=== PATIENT | female | born 1950 | race Caucasian/White ===

== ENCOUNTER → 2018-01-27 | Outpatient (CLI) | payer MEDICARE ==
--- NOTE | 2018-01-28 15:40 | RADIOLOGY REPORT (SQ) ---
EXAM DESCRIPTION: MRI LUMBAR SPINE WITHOUT COMPLETED DATE/TIME: 01/27/2018 12:32 pm REASON FOR STUDY: RADICULOPATHY, LUMBAR REGION M54.16 RADICULOPATHY, LUMBAR REGION COMPARISON: None. TECHNIQUE: Sagittal and Axial imaging includes T1, T2, STIR and gradient echo sequences. Coronal T2/ HASTE imaging. LIMITATIONS: Motion. FINDINGS: VISUALIZED UPPER ABDOMEN: Limited evaluation. No acute or suspicious findings suggested. SEGMENTATION: No transitional anatomy. The lowest well-developed disc space is labeled L5-S1. ALIGNMENT: Mild convex left scoliosis. Slight anterolisthesis L3 relative to L2. VERTEBRAE: Intact. BONE MARROW: Mild reactive edema L2-3 and L3- 4 endplates. DISC SIGNAL: Desiccation multiple levels. POSTERIOR ELEMENTS: Generally intact. No pars defect evident. HARDWARE: None in the spine. CORD AND CONUS: Normal in size and signal intensity. Conus at the appropriate level. SOFT TISSUES: No aortic aneurysm seen. No bulky retroperitoneal adenopathy or mass. No paraspinal mas s or fluid. L1-L2: Mild spinal stenosis due to disc osteophyte complex. Mild neural foraminal narrowing bilatera lly. L2-L3: Mild spinal stenosis due to disc osteophyte complex. Mild neural foraminal narrowing bilatera lly. L3-L4: Mild spinal stenosis due to disc osteophyte complex. Mild neural foraminal narrowing, right g reater than left. L4-L5: Mild spinal stenosis due to disc osteophyte complex and facet arthropathy. Mild right neural foraminal narrowing. L5-S1: Disc bulge and facet arthropathy. Mild neural foraminal narrowing bilaterally. LOWER THORACIC: Incompletely imaged. No stenosis seen. SACRUM: Visualized upper sacrum intact. OTHER: No other significant findings. IMPRESSION: Spondylosis, facet arthropathy and malalignment. Mild spinal stenosis at multiple level s. TECHNICAL DOCUMENTATION: JOB ID: [id number] [employer]- All Rights Reserved Reading location - IP/workstation name: [email or web address]
== END ==
LOC: RAD 10:59
PROVIDERS: ATTEND Physician Assistant
DX: M54.16 Radiculopathy, lumbar region (principal)
CPT/HCPCS: 72148